=== PATIENT | female | born 1990 | race Caucasian/White ===

== ENCOUNTER 2020-01-15 09:18 | Inpatient (IN) | payer BC ==
[2020-01-15] MEDS ORDERED: ELECTROLYTE-148 SOLN 1,000 ML IV SCH (10:00)
[2020-01-15 10:21] VITALS: BMI 23.9
[2020-01-15 10:31] LABS: BASO % 0.4 % (0-2.0); EOS % 0.5 % (0-4.5); HEMATOCRIT 40.8 % (32.4-45.2); HEMOGLOBIN 13.4 GM/dL (10.7-15.3); LYMPH % 15.6 % (8-40); MCH 29.6 pg (25.7-33.7); MCHC 32.8 g/dl (32.0-36.0); MEAN CELL VOLUME 90.1 fl (80-96); MEAN PLT VOLUME 10.4 fl (7.5-11.1); MONO % 8.1 % (3.8-10.2); NEUT % 75.4 % (42.8-82.8); PLATELET COUNT 225 K/MM3 (134-434); RBC 4.52 M/mm3 (3.60-5.2); RDW 14.2 % (11.6-15.6); WHITE BLOOD COUNT 11.6 K/mm3 (4.0-10.0)
[2020-01-15 10:39] LABS: INR 0.88 (0.83-1.09); PROTHROMBIN TIME (PATIENT) 10.4 SEC (9.7-13.0)
[2020-01-15 10:42] LABS: ACTIVATED PTT 25.9 SECONDS (25.2-36.5)
[2020-01-15 10:47] LABS: BLOOD UREA NITROGEN 5.5 mg/dL (7-18); CALCIUM 9.3 mg/dL (8.5-10.1); CREATININE 0.6 mg/dL (0.55-1.3); POTASSIUM 3.8 mmol/L (3.5-5.1)
[2020-01-15] MEDS ORDERED: PROMETHAZINE HCL 25 MG/1 ML VIAL IVPB ONE (12:15)
[2020-01-15] MEDS ORDERED: BUTORPHANOL TARTRATE 1 MG/ML VIAL IVPB ONE (12:15)
[2020-01-15] MEDS ORDERED: BUTORPHANOL TARTRATE 1 MG/ML VIAL ONE ×2 (12:16)
[2020-01-15] MEDS ORDERED: PROMETHAZINE HCL 25 MG/1 ML VIAL ONE (12:16)
[2020-01-15] MEDS ORDERED: PCA PUMP NR ONE (13:16)
[2020-01-15] MEDS ORDERED: FENTANYL/BUPIVACAINE/NS/PF - PCEA - 50 ML DISP.SYRIN EP ONE ×2 (13:17→18:14)
[2020-01-15] MEDS ORDERED: NALOXONE HCL 0.4 MG/ML VIAL IVPUSH PRN (15:21)
[2020-01-15] MEDS ORDERED: FENTANYL/BUPIVACAINE/NS/PF - PCEA - 50 ML DISP.SYRIN EP SCH (15:30)
[2020-01-15] MEDS ORDERED: ACETAMINOPHEN 325 MG TABLET (FP) ONE (19:21)
[2020-01-15] MEDS ORDERED: OXYTOCIN 30 UNITS in 0.9% NS 30 UNIT/500 ML INFUS.BAG IVPB ONE (20:05)
[2020-01-15] MEDS ORDERED: ACETAMINOPHEN 325 MG TABLET (FP) PO PRN (20:09)
--- NOTE | 2020-01-15 20:13 | HP ---
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: Alzheimer's, CVA, Dementia, Migraine, Multiple Sclerosis, Peripheral Neuropathy, Parkinson's, Seizure, Syncope, TIA, Vertigo, Other Cardiovascular: No: AFIB, Aneurysm, Aortic Insufficiency, Aortic Stenosis, CAD, CHF, Deep Vein Thrombosis, HTN, Hyperlipdemia, OK, Mitral Insufficiency, Mitral Stenosis, Murmur, Pulmonary Hypertension, Other Pulmonary: No: Asthma, Bronchitis, Cancer, COPD, O2 Dependent, Pneumonia, Previously Intubated, Pulmonary Embolus, Pulmonary Fibrosis, Sleep Apnea, Other Gastrointestinal: No: Ascites, Cancer, Constipation, Crohn's Disease, Diverticulitis, Diverticulosis, Esophageal Varices, Gastritis, GERD, GI Bleed, Hemorrhoids, Hiatal Hernia, Inflamatory Bowel Disease, Irritable Bowel Disease, Pancreatitis, Peptic Ulcer Disease, Ulcerative Colitis, Other Hepatobiliary: No: Cirrhosis, Cholelithiasis, Cholecystitis, Choledocholithiasis, Hepatitis A, Hepatitis B, Hepatitis C, Other Renal/: No: Renal Failure, Renal Inusuff, BPH, Cancer, Hematuria, Hemodialysis, Neurogenic Bladder, Renal Calculi, UTI, Other Reproductive: No: Ectopic , Endometriosis, Fibroids, PID, Polycystic Ovary Syndrome, Postmenopausal, Other ...: 1 ...EDC by Andrey: 01/12/20 Heme/Onc: No: Anemia, B12 Deficiency, Bleeding Disorder, Cancer, Current Chemotherapy, Current Radiation Therapy, Hemochromatosis, Hypercoaguable State, Myeloproliferative Synd, Sickle Cell Disease, Sickle Cell Trait, Thrombocytopenia, Other Infectious Disease: No: AIDS, C-Diff, Herpes Zoster, HIV, MRSA, STD's, Tuberculosis, VREF, Other Psych: No: Addictions, Anxiety, Bipolar, Depression, Panic, Psychosis, Schi zophrenia, Other Musculoskeletal: No: Bursitis, Chronic low back pain, Hemiparesis, Hemiplegia, Osteoarthritis, Paraplegia, Other Rheumatology: No: Fibromyalgia, Gout, Lupus, Rheumatoid Arthritis, Sarcoidosis, Vasculitis, Other ENT: No: Allergic Rhinitis, Sinusitis, Other Endocrine: No: Raheem's Disease, Cindy's Disease, Diabetes Insipidus, Diabetes Mellitus, Hyperparathyroidism, Hyperthyroidism, Hypothyroidism, Osteopenia, SIADH, Other Dermatology: No: Basal Cell, Cellulitis, Eczema, Melanoma, Psoriasis, Squamous Cell, Other - Past Surgical History Past Surgical History: No: None, AAA Repair, AICD, Amputation, Appendectomy, Arthrosocopy, AV Fistula/Graft, Bariatric Surgery, Breast Biopsy, Bypass, CABG, Carotid Endarterectomy, Cataract Removal, Cholecystectomy, Colectomy, Colonoscopy, Colostomy, Craniotomy, , Cystectomy, Hernia Repair, Hysterectomy, Ileal Conduit, Ileosotomy, Joint Replacement, Kidney Transplant, Laminectomy, Liver Transplant, Mastectomy, Nephrectomy, Oopherectomy, Orchiectomy, Permanent Pacemaker, Prostatectomy, Splenectomy, Stent, Thoracotomy, TURP, Tonsillectomy, Tubal Ligation, Upper Endoscopy, Valve Replacement, Vasectomy, Vein Stripping/Ligation Hx Myomectomy: No Hx Transabdominal Cerclage: No - Advance Directives Advance Directives: Yes: Living Will - Smoking History Smoking history: Never smoked Have you smoked in the past 12 months: No - Alcohol/Substance Use Hx Alcohol Use: No History of Substance Use: reports: None - Social History Usual Living Arrangement: Yes: Alone Do you think of yourself as: Straight/Heterosexual ADL: Independent History of Recent Travel: No Home Medications - Allergies Allergies/Adverse Reactions: Allergies Allergy/AdvReac Type Severity Reaction Status Date / Time No Known Allergies Allergy Verified 01/15/20 10:25 - Home Medications Home Medications: Ambulatory Orders Albuterol Sulfate Inhaler - [Ventolin HFA Inhaler -] 1 - 2 inh PO Q4H #1 inhaler 11/02/19 Tablet 1 tablet PO DAILY 01/15/20 Review of Systems - Review of Systems Constitutional: reports: No Symptoms Eyes: reports: No Symptoms HENT: reports: No Symptoms Neck: reports: No Symptoms Cardiovascular: reports: No Symptoms Respiratory: reports: No Symptoms Gastrointestinal: reports: No Symptoms Genitourinary: reports: No Symptoms Breasts: reports: No Symptoms Reported Musculoskeletal: reports: No Symptoms Integumentary: reports: No Symptoms Neurological: reports: No Symptoms Endocrine: reports: No Symptoms Hematology/Lymphatic: reports: No Symptoms Psychiatric: reports: No Symptoms Physical Exam - Maternity Vital Signs: Vital Signs Temperature 99.8 F H 01/15/20 19:00 Pulse Rate 87 01/15/20 19:00 Respiratory Rate 18 01/15/20 19:00 Blood Pressure 124/73 01/15/20 19:00 O2 Sat by Pulse Oximetry (%) 100 01/15/20 19:00 Constitutional: Yes: Well Nourished, No Distress, Calm Eyes: Yes: WNL, Conjunctiva Clear, EOM Intact HENT: Yes: WNL, Atraumatic, Normocephalic Neck: Yes: WNL, Supple, Trachea Midline Cardiovascular: Yes: WNL, Regular Rate and Rhythm Lungs: Clear to auscultation Breast(s): Yes: WNL - Abdominal Exam/OB Fundal Height: 40 Number of Fetuses: Single Presentation: Vertex Contractions: Yes Regularity: Regular Intensity: Moderate Monitor Mode: External Heart Rate (range): 150 Heart Rate Location: [facility] Category: I Accelerations: Uniform Decelerations: None - Vaginal Exam/OB Vaginal Bleeding: No Speculum Exam: No Dilatation (cm): 2 Amniotic Membrane Status: Intact Presentation: Vertex/Position Station: -2 - Physical Exam Musculoskeletal: Yes: WNL Extremities: Yes: WNL Edema: Yes Edema: LUE: 1+, RUE: 1+, LLE: 1+, RLE: 1+ Integumentary: Yes: WNL Deep Tendon Reflex Grade: Normal +2 ...Motor Strength: WNL Psychiatric: Yes: WNL, Alert, Oriented - Labs Lab Results: CBC, BMP 01/15/20 10:00 01/15/20 10:00 Hemorrhage Risk Assessment - Risk Factors Medium Risk Factors: Yes: None High Risk Factors: Yes: None Risk Score: 1 Risk Level: Medium Risk Assessment/Plan for , cervidil then pitocin
--- NOTE | 2020-01-15 20:14 | PN ---
Progress Note (short form) - Note Progress Note: 5pm 6 cm, comfortable w epidural, uc q 3 min, cervidil out
[2020-01-15] MEDS ORDERED: DEXTROSE 5%-LACTATED RINGERS 1,000 ML IV SCH (20:15)
[2020-01-15] MEDS ORDERED: OXYTOCIN 30 UNITS in 0.9% NS 30 UNIT/500 ML INFUS.BAG IVPB SCH (20:15)
--- NOTE | 2020-01-15 20:15 | PN ---
Progress Note (short form) - Note Progress Note: 730 pm, nst reactive, uc q 3 min, comfort w epidural, continue labor, add pitocin
[2020-01-15] MEDS ORDERED: OXYTOCIN 20 UNITS in 0.9% NS 20 UNIT/1,000 ML INFUS.BAG IV ONE (20:59)
[2020-01-15] MEDS ORDERED: BENZOCAINE 20% 57 GM BOTTLE TP PRN (22:53)
[2020-01-15] MEDS ORDERED: METHYLERGONOVINE MALEATE 0.2 MG/1 ML AMP IM PRN (22:53)
[2020-01-15] MEDS ORDERED: BENZOCAINE 28 GM HEMORRHOIDAL OINTMENT TP PRN (22:53)
[2020-01-15] MEDS ORDERED: WITCH HAZEL 50% (TUCKS) 40 PAD/JAR PAD TP PRN (22:53)
[2020-01-15] MEDS ORDERED: BISACODYL 10 MG SUPP.RECT RC PRN (22:53)
[2020-01-15] MEDS ORDERED: OXYTOCIN 20 UNITS in 0.9% NS 20 UNIT/1,000 ML INFUS.BAG IV SCH (23:00)
[2020-01-15] MEDS ORDERED: oxyCODONE HCL 5 MG TABLET ONE (23:02)
--- NOTE | 2020-01-15 23:05 | PN ---
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
[2020-01-15] MEDS: oxyCODONE HCL 5 MG TABLET PO PRN (23:07)
[2020-01-15 23:17] LABS: CORD HCO3 19.5 mmHg (20-29); CORD PCO2 40.2 mmHg (30-78); CORD pH 7.304 (7.14-7.44)
[2020-01-15 23:22] LABS: CORD HCO3 17.4 mmHg (20-29); CORD PCO2 60.2 mmHg (30-78)
[2020-01-16] MEDS ORDERED: OXYTOCIN 20 UNITS in 0.9% NS 20 UNIT/1,000 ML INFUS.BAG IV ONE (00:40)
[2020-01-16] MEDS ORDERED: PCA PUMP NR ONE (01:00)
[2020-01-16] MEDS: oxyCODONE HCL 5 MG TABLET PO PRN ×2 (04:50→20:31)
[2020-01-16] MEDS: ACETAMINOPHEN 325 MG TABLET (FP) PO PRN ×2 (04:55→18:05)
[2020-01-16] MEDS: IBUPROFEN 600 MG TABLET (FP) PO PRN ×2 (04:56→18:04)
[2020-01-16 08:09] LABS: BASO % 0.1 % (0-2.0); HEMATOCRIT 29.1 % (32.4-45.2); HEMOGLOBIN 9.5 GM/dL (10.7-15.3); LYMPH % 5.6 % (8-40); MCH 29.3 pg (25.7-33.7); MCHC 32.8 g/dl (32.0-36.0); MEAN CELL VOLUME 89.2 fl (80-96); MONO % 7.4 % (3.8-10.2); NEUT % 86.9 % (42.8-82.8); PLATELET COUNT 191 K/MM3 (134-434); RBC 3.26 M/mm3 (3.60-5.2); RDW 14.1 % (11.6-15.6); WHITE BLOOD COUNT 25.9 K/mm3 (4.0-10.0)
[2020-01-16] MEDS: PRENATAL VITAMINS W/ FOLIC ACID TABLET (FP) PO SCH (09:22)
[2020-01-16] MEDS ORDERED: PNEUMOC 13-VAL CONJ-DIP CRM/PF 0.5 ML DISP.SYRIN IM ONE (10:00)
[2020-01-16] MEDS ORDERED: FLU VACCINE QUAD 60 MCG/0.5 ML (MDV 19-20) IM ONE (10:00)
[2020-01-16 10:20] LABS: ANISOCYTOSIS 1+; MACROCYTOSIS 0; PLATELET ESTIMATE NORMAL
[2020-01-16] MEDS ORDERED: FLU VACC QS2019-20(6MOS UP)/PF 60 MCG/0.5 ML SYRINGE IM ONE (11:00)
[2020-01-16] MEDS ORDERED: DIPHTH,PERTUSS(ACELL),TET 0.5 ML DISP.SYRIN IM ONE (11:00)
[2020-01-16] MEDS ORDERED: PNEUMOCOCCAL 23 VACCINE 0.5 ML VIAL IM ONE (11:00)
--- NOTE | 2020-01-16 16:46 | PN ---
Post Progress Note Post Day: 1 Type of Delivery: Vital Signs: Vital Signs Temperature 98.6 F 01/16/20 14:00 Pulse Rate 94 H 01/16/20 14:00 Respiratory Rate 20 01/16/20 14:00 Blood Pressure 107/65 01/16/20 14:00 O2 Sat by Pulse Oximetry (%) 100 01/15/20 23:15 Breast Exam: Yes: Soft Uterus: Yes: Fundus Firm, Fundus below umbilicus, Non-tender Abdomen/GI: Yes: Abdomen soft, Passing flatus, Tolerating PO Lochia: Yes: Serosa Lochia, amount: Small Extremities: Yes: Calves non-tender Perineum: Yes: Episiotomy Activity: Ambulating (dc pt home tomorrow) - Labs Labs: CBC WBC 25.9 K/mm3 (4.0-10.0) H 01/16/20 07:11 RBC 3.26 M/mm3 (3.60-5.2) L 01/16/20 07:11 Hgb 9.5 GM/dL (10.7-15.3) L 01/16/20 07:11 Hct 29.1 % (32.4-45.2) L D 01/16/20 07:11 MCV 89.2 fl (80-96) 01/16/20 07:11 MCH 29.3 pg (25.7-33.7) 01/16/20 07:11 MCHC 32.8 g/dl (32.0-36.0) 01/16/20 07:11 RDW 14.1 % (11.6-15.6) 01/16/20 07:11 Plt Count 191 K/MM3 (134-434) 01/16/20 07:11 MPV 10.0 fl (7.5-11.1) 01/16/20 07:11 Absolute Neuts (auto) 22.5 K/mm3 (1.5-8.0) H 01/16/20 07:11 Neutrophils % 86.9 % (42.8-82.8) H 01/16/20 07:11 Neutrophils % (Manual) 84.1 % (42.8-82.8) H 01/16/20 07:11 Band Neutrophils % 8.9 % 01/16/20 07:11 Lymphocytes % 5.6 % (8-40) L D 01/16/20 07:11 Lymphocytes % (Manual) 4.0 % (8-40) L 01/16/20 07:11 Monocytes % 7.4 % (3.8-10.2) 01/16/20 07:11 Monocytes % (Manual) 3 % (3.8-10.2) L 01/16/20 07:11 Eosinophils % 0.0 % (0-4.5) D 01/16/20 07:11 Eosinophils % (Manual) 0.0 % (0-4.5) 01/16/20 07:11 Basophils % 0.1 % (0-2.0) 01/16/20 07:11 Basophils % (Manual) 0.0 % (0-2.0) 01/16/20 07:11 Myelocytes % (Man) 0 % (0-2) 01/16/20 07:11 Promyelocytes % (Man) 0 % (0-2) 01/16/20 07:11 Blast Cells % (Manual) 0 % (0-0) 01/16/20 07:11 Nucleated RBC % 0 % (0-0) 01/16/20 07:11 Metamyelocytes 0 % (0-2) 01/16/20 07:11 Hypochromia 0 01/16/20 07:11 Platelet Estimate Normal 01/16/20 07:11 Platelet Comment Present 01/16/20 07:11 Polychromasia 1+ 01/16/20 07:11 Poikilocytosis 1+ 01/16/20 07:11 Anisocytosis 1+ 01/16/20 07:11 Microcytosis 1+ 01/16/20 07:11 Macrocytosis 0 01/16/20 07:11 Spherocytes 1+ 01/16/20 07:11
--- NOTE | 2020-01-16 16:49 | DS ---
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: Vital Signs Temperature 98.6 F 01/16/20 14:00 Pulse Rate 94 H 01/16/20 14:00 Respiratory Rate 20 01/16/20 14:00 Blood Pressure 107/65 01/16/20 14:00 O2 Sat by Pulse Oximetry (%) 100 01/15/20 23:15 Constitutional: Yes: Well Nourished, No Distress, Calm Eyes: Yes: WNL, Conjunctiva Clear, EOM Intact HENT: Yes: WNL, Atraumatic, Normocephalic Neck: Yes: WNL, Supple, Trachea Midline Cardiovascular: Yes: WNL, Regular Rate and Rhythm Respiratory: Yes: WNL, Regular, CTA Bilaterally Gastrointestinal: Yes: WNL, Normal Bowel Sounds, Soft ...Rectal Exam: Yes: WNL Renal/: Yes: WNL Pelvis: Yes: WNL External Genitalia: Yes: Normal Internal Exam Deferred: Yes Vaginal Exam: Yes: Normal Cervix: Yes: Normal Uterus: Yes: Normal Adnexa: Normal: Bilateral ....Post : Yes: Uterus firm, Uterus non-tender Breast(s): Yes: WNL Musculoskeletal: Yes: WNL Extremities: Yes: WNL Edema: Yes Integumentary: Yes: WNL Neurological: Yes: WNL, Alert, Oriented ...Motor Strength: WNL Psychiatric: Yes: WNL, Alert, Oriented Labs: CBC, BMP 01/16/20 07:11 01/15/20 10:00 Delivery - Delivery Vaginal Delivery: No Problems Type of Anesthesia: Local, Epidural Episiotomy/Laceration: Right Mediolateral EBL (cc): 200 Delivery, Single - Stages of Labor Date 1st Stage Initiatied: 01/15/20 Time 1st Stage Initiated: 16:50 Date 2nd Stage Initiated: 01/15/20 Time 2nd Stage Initiated: 21:00 Date of Delivery: 01/15/20 Time of Delivery: 22:21 Time Placenta Delivered: 22:24 Placenta: Yes: Spontaneous - 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 Gender: Male Weight: 3.856 kg Position: Left, OA Total Hours ROM (Hrs/Mins): 2h 21m - 1 Minute Total Score: 7 5 Minutes Total Score: 9 - Feeding Plan Initial Plan: Elected not to breastfeed exclusively throughout hospitalization Discharge Summary Problems reviewed: Yes Reason For Visit: INDUCTION OF LABOR Procedures: Principal: Other Procedures: none Hospital Course: uneventful Health Concerns: none Plan of Treatment: oob as much as poosible Condition: Good - Instructions Diet, Activity, Other Instructions: Physical activity Resume your normal everyday activity as tolerated no heavy lifting or exercise until seen by your surgeon. You may walk unlimited jon of and climb stairs. You may resume driving the car when you feel safe and comfortable behind the wheel. No sexual activity as instructed. Wound care If you have a bandage, leave it on, and keep dry for 48-72 hours. After that time discard the outer bandage. If they are tapes on the skin under the out of bandage leave them in place. They will peel off in the next 7 to 10 days. Do Not Peel them off. You may shower the day after surgery. If there are tapes present on the skin, you may shower over them. Diet There are no dietary restrictions. Eat healthy, high-fiber foods. Drink 6 to 8 glasses of liquid each day. This will assist in keeping your bowels are regular. Pain management You may take Tylenol or acetaminophen or Ibuprofen (for example, Motrin, Advil etc.) from my pain prescription medication is ordered should be taken as prescri bed for moderate to severe pain. Call MD for any of the following: call dr paris for weeks appointment Severe pain not relieved by medication Fever of 101 or higher Excessive bleeding or drainage on dressing Inability to urinate Disposition: HOME - Home Medications Comprehensive Discharge Medication List: Ambulatory Orders Albuterol Sulfate Inhaler - [Ventolin HFA Inhaler -] 1 - 2 inh PO Q4H #1 inhaler 11/02/19 Tablet 1 tablet PO DAILY 01/15/20 Prescription Drug Monitoring Program (I-STOP) results: I-STOP reviewed and no issues identified
[2020-01-16] MEDS ORDERED: SENNOSIDES/DOCUSATE COMBO (SENNA PLUS) TABLET (UD) PO PRN (22:00)
[2020-01-17] MEDS: ACETAMINOPHEN 325 MG TABLET (FP) PO PRN (06:00)
[2020-01-17] MEDS: IBUPROFEN 600 MG TABLET (FP) PO PRN (06:00)
[2020-01-17] MEDS: oxyCODONE HCL 5 MG TABLET PO PRN (06:01)
[2020-01-17] MEDS: PRENATAL VITAMINS W/ FOLIC ACID TABLET (FP) PO SCH (09:27)
[2020-01-17 10:45] LABS: BASO % 0.2 % (0-2.0); EOS % 0.4 % (0-4.5); HEMATOCRIT 26.7 % (32.4-45.2); HEMOGLOBIN 8.7 GM/dL (10.7-15.3); LYMPH % 10.1 % (8-40); MCH 29.7 pg (25.7-33.7); MCHC 32.7 g/dl (32.0-36.0); MEAN PLT VOLUME 9.2 fl (7.5-11.1); MONO % 5.9 % (3.8-10.2); NEUT % 83.4 % (42.8-82.8); PLATELET COUNT 207 K/MM3 (134-434); RBC 2.94 M/mm3 (3.60-5.2); RDW 14.5 % (11.6-15.6); WHITE BLOOD COUNT 15.5 K/mm3 (4.0-10.0)
--- NOTE | 2020-01-17 15:03 | PN ---
Progress Note (short form) - Note Progress Note: pt was found tacy of 140 and sob slightly, pt is symptomatic from anemia, will transfuse x 2 uints, no active vag bleeding
[2020-01-17 16:44] VITALS: BP 120/72; PULSE 98; TEMP 98.7
--- NOTE | 2020-01-17 17:49 | EKG ---
Test Reason : Blood Pressure : / mmHG Vent. Rate : 095 BPM Atrial Rate : 095 BPM P-R Int : 136 ms QRS Dur : 086 ms QT Int : 354 ms P-R-T Axes : 071 072 036 degrees QTc Int : 444 ms NORMAL SINUS RHYTHM WITH SINUS ARRHYTHMIA NORMAL ECG NO PREVIOUS ECGS AVAILABLE Confirmed by MD Palomo, Tho ([id number]) on 01/17/2020 5:48:50 PM Referred By: Jacqueline CHEW Confirmed By:Tho Culver MD
== END 2020-01-17 18:57 | disposition home or self-care (01) | DRG 807 ==
LOC: JLDR 09:18 → J3N 01-16 01:05
PROVIDERS: ADMIT Obstetrics & Gynecology; ATTEND Obstetrics & Gynecology
PROC: 10E0XZZ Delivery of Products of Conception, External Approach (ICD-10-PCS; principal; 2020-01-15)
PROC: 3E033VJ Introduction of Other Hormone into Peripheral Vein, Percutaneous Approach (ICD-10-PCS; 2020-01-15)
PROC: 3E0P7VZ Introduction of Hormone into Female Reproductive, Via Natural or Artificial Opening (ICD-10-PCS; 2020-01-15)
PROC: 0W8NXZZ Division of Female Perineum, External Approach (ICD-10-PCS; 2020-01-15)
PROC: 30233N1 Transfusion of Nonautologous Red Blood Cells into Peripheral Vein, Percutaneous Approach (ICD-10-PCS; 2020-01-17)
DX: O48.0 Post-term pregnancy (principal); Z37.0 Single live birth; O77.0 Labor and delivery complicated by meconium in amniotic fluid; Z3A.40 40 weeks gestation of pregnancy; O90.81 Anemia of the puerperium; D64.89 Other specified anemias; O98.519 Other viral diseases complicating pregnancy, unspecified trimester; B33.8 Other specified viral diseases; Z86.19 Personal history of other infectious and parasitic diseases
CPT/HCPCS: 36415; 36430; 36511; 36600; 59409; 80048; 82803; 85025; 85610; 85730; 86780; 86850; 86900; 86901; 86922; 87389; 90686; 90715; 90732; 93005; 93010; G0008; G0009; P9038; P9058; U0003

== ENCOUNTER 2020-02-05 21:06 | Inpatient (IN) | payer BC ==
--- NOTE | 2020-02-05 21:54 | PDOC ---
History of Present Illness - General Chief Complaint: Chest Pain Stated Complaint: CHEST PAIN Time Seen by Provider: 02/05/20 21:18 - History of Present Illness Initial Comments: 02/05/20 21:49 29-year-old female past medical history asthma COVID positive for months ago gave 3 weeks ago here via vaginal delivery with a significant amount of blood loss requiring 2 units packed red blood cells. Patient's hemoglobin on admission for delivery was 13 patient states her hemoglobin went down to 7 she was transfused 2 units and was discharged with hemoglobin 8.7. Patient is complaining of syncopal episode 3 days ago without head trauma as well as chest pain dizziness shortness of breath weakness tachycardia and palpitations. Patient states she still having vaginal bleeding but has not noticed any passing of clots or retained products of conception. Pt otherwise denies: fevers, chills, headaches, neck pain, back pain, abdominal pain, nausea, vomiting, diarrhea, constipation. Past History - Medical History Allergies/Adverse Reactions: Allergies Allergy/AdvReac Type Severity Reaction Status Date / Time No Known Allergies Allergy Verified 01/15/20 10:25 Home Medications: Ambulatory Orders Albuterol Sulfate Inhaler - [Ventolin HFA Inhaler -] 1 - 2 inh PO Q4H #1 inhaler 11/02/19 Tablet 1 tablet PO DAILY 01/15/20 Ibuprofen [Motrin -] 600 mg PO QID PRN #28 tablet 01/17/20 Asthma: Yes Cancer: No Cardiac Disorders: No COPD: No Diabetes: No HTN: No Seizures: No Thyroid Disease: No - Psycho-Social/Smoking History Smoking History: Never smoked Have you smoked in the past 12 months: No - Substance Abuse Hx (Audit-C & DAST Scrn) How often the patient has a drink containing alcohol: Never Score: In Men: 4 or > Positive; In Women: 3 or > Positive: 0 Screen Result (Pos requires Nsg. Audit-10AR): Negative In the last yr the pt used illegal drug/Rx for NonMed reason: No Score: Yes response is considered Positive: 0 Screen Result (Positive result requires Nsg. DAST-10): Negative *Physical Exam - Vital Signs Last Vital Signs Temp Pulse Resp BP Pulse Ox 98 F 85 19 145/97 97 02/05/20 21:08 02/05/20 21:08 02/05/20 21:08 02/05/20 21:08 02/05/20 21:08 - Physical Exam 02/05/20 21:51 Gen: AAOx 3, no acute distress, comfortable, no signs of respiratory distress HENT: atraumatic, normocephalic with no laceration or contusion. Nasal mucosa without erythema. Oropharynx without erythema or exudates. Mucous membranes moist. EYES: PERRL, EOM intact, conjunctiva pink NECK: supple; trachea midline; no JVD, no lymphadenopathy, or thyromegaly CV: RRR no murmurs, gallops, or rubs. CHEST: CTA b/l no wheezing, rales or rhonchi ABD: +BS/ND. no TTP; soft, no rebound, no guarding PELVIC: No external lesions, vaginal vault: - white discharge, dark red blood in vault no clots, - midline tenderness elicited with manual exam, no CMT or adnexal tenderness; os unable to be visualized EXTREMITY: no cyanosis or erythema. 2+ dorsalis pedis, posterior tibial, and radial pulse. No pedal edema; no calf swelling or tenderness SKIN: no rash, warm and dry, no diaphoresis HEME: no purpura or ecchymosis NEURO: normal speech, CN II-XII intact, sensation intact, normal gait, no cerebellar deficits MS: 5/5 strength in all extremities, FROM intact in all extremities. ED Treatment Course - LABORATORY CBC & Chemistry Diagram: 02/05/20 21:50 02/05/20 21:50 Medical Decision Making - Medical Decision Making 02/05/20 21:52 29-year-old female history of asthma COVID positive for months ago 3- week presenting with chest pain shortness of breath dizziness weakness palpitations. Vital signs stable Concern for HELP syndrome versus symptomatic anemia versus PE versus cardiomyopathy Will obtain CBC CMP troponin type and screen x2 mag BNP EKG If patient's hemoglobin shows anemia other differentials significantly less likely Will use lab work to determine likelihood of other differentials If no anemia patient to be worked up for pulmonary embolism Will reassess based on result Labs: Wbc 6.5 H&H: 15.1/45.2 Coags WNL Alk phos elevated Trop and BNP negative EKG show new ST depressions in V2 and V3. Anemia, cardiomyopathy (based soley on BNP) and HELP syndrome ruled out Will obtain CTA to assess for PE. Pt signed out for further management pending CTA results and admission for syncope work up. 02/05/20 23:52 Discharge - Discharge Information Problems reviewed: Yes Clinical Impression/Diagnosis: Syncope Qualifiers: Syncope type: unspecified Qualified Code(s): R55 - Syncope and collapse Condition: Stable - Follow up/Referral - Patient Discharge Instructions - Post Discharge Activity
[2020-02-05 22:21] LABS: INR 0.93 (0.83-1.09)
[2020-02-05 22:47] LABS: BASO % 0.7 % (0-2.0); EOS % 8.8 % (0-4.5); HEMATOCRIT 45.2 % (32.4-45.2); HEMOGLOBIN 15.1 GM/dL (10.7-15.3); LYMPH % 43.1 % (8-40); MCH 30.3 pg (25.7-33.7); MCHC 33.3 g/dl (32.0-36.0); MEAN PLT VOLUME 7.8 fl (7.5-11.1); MONO % 8.6 % (3.8-10.2); NEUT % 38.8 % (42.8-82.8); PLATELET COUNT 425 K/MM3 (134-434); RBC 4.97 M/mm3 (3.60-5.2); RDW 14.9 % (11.6-15.6); WHITE BLOOD COUNT 6.5 K/mm3 (4.0-10.0)
[2020-02-05 22:59] LABS: ALBUMIN 3.9 g/dl (3.4-5.0); ALK PHOS 136 U/L (45-117); ANION GAP 8 MMOL/L (8-16); BILIRUBIN,TOTAL 0.8 mg/dL (0.2-1); CALCIUM 9.8 mg/dL (8.5-10.1); CHLORIDE 106 mmol/L (98-107); CO2 29 mmol/L (21-32); CREATININE 0.8 mg/dL (0.55-1.3); GLUCOSE,RANDOM 80 mg/dL (74-106); MAGNESIUM 2.6 mg/dL (1.8-2.4); POTASSIUM 4.5 mmol/L (3.5-5.1); SGOT/AST 20 U/L (15-37); SGPT/ALT 25 U/L (13-61); SODIUM 143 mmol/L (136-145); TOT PROT 7.8 g/dl (6.4-8.2)
--- NOTE | 2020-02-06 00:18 | PDOC ---
*Physical Exam - Vital Signs Last Vital Signs Temp Pulse Resp BP Pulse Ox 98 F 85 19 145/97 97 02/05/20 21:08 02/05/20 21:08 02/05/20 21:08 02/05/20 21:08 02/05/20 21:08 - Physical Exam 02/06/20 00:18 gen: aaox3, nad heart: +s1s2 reg lungs: cta b/l abd: soft, nt/nd palpable uterus below the umbilicus ext: no c/c/e ED Treatment Course - LABORATORY CBC & Chemistry Diagram: 02/05/20 21:50 02/05/20 21:50 - ADDITIONAL ORDERS Additional order review: Laboratory Results 02/05/20 02/05/20 02/05/20 21:50 21:50 21:50 PT with INR 11.00 INR 0.93 PTT (Actin FS) 34.0 Sodium 143 Potassium 4.5 Chloride 106 Carbon Dioxide 29 Anion Gap 8 BUN 11.0 Creatinine 0.8 Est GFR (CKD-EPI)AfAm 117.10 Est GFR (CKD-EPI)NonAf 101.04 Random Glucose 80 Calcium 9.8 Magnesium 2.6 H Total Bilirubin 0.8 AST 20 ALT 25 Alkaline Phosphatase 136 H Creatine Kinase 64 Troponin I < 0.02 B-Natriuretic Peptide 23.0 Total Protein 7.8 Albumin 3.9 Blood Type O POSITIVE Antibody Screen Negative 02/05/20 21:50 RBC 4.97 MCV 91.0 MCHC 33.3 RDW 14.9 MPV 7.8 D Neutrophils % 38.8 L D Lymphocytes % 43.1 H D Monocytes % 8.6 Eosinophils % 8.8 H D Basophils % 0.7 D Medical Decision Making - Medical Decision Making 02/06/20 00:04 a/p: 29yo female who delivered 3 weeks ago vaginal delivery with a syncopal episode at home and sob -pt states cp and sob -still feels lightheaded -labs reviewed, trop neg -pt in CT pending CTA chest -hgb 15 -pending cta and obs for syncope Discharge - Discharge Information Problems reviewed: Yes Clinical Impression/Diagnosis: Syncope Qualifiers: Syncope type: unspecified Qualified Code(s): R55 - Syncope and collapse Condition: Guarded - Admission Yes - Follow up/Referral - Patient Discharge Instructions - Post Discharge Activity
[2020-02-06] MEDS ORDERED: ALBUTEROL SO4 0.083% IH SOL 2.5 MG/3 ML VIAL.NEB. NEB ONE ×2 (03:13→06:34)
--- NOTE | 2020-02-06 03:32 | HP ---
<Gomez Alvarado - Last Filed: 02/06/20 05:05> CHIEF COMPLAINT: Syncope PCP: HISTORY OF PRESENT ILLNESS: 29 y.o. F PMHx of asthma and covid presenting due to syncopal event and chest pain. 3 weeks ago she had a spontaneous vaginal delivery () and needed to be transfused 2 units of RBC's which brought her Hgb from 7 to 7.8 on discharge. Patient stated 3 days ago she was getting out of the shower and became lightheaded. She sat down on the toilet and does not remember what happened. She said her had brought her to the bed where she regained awareness but no indication on how long she was out for or if there was a post state of confusion. During this time she has also experienced R sided chest pain ( 3rd intercostal space and 6-7th intercostal spaces) that occasionally moves to the left side, described as a pressure on her chest, not reproducible, graded at a 5/10 intensity. Patient stated she has had intermittent headaches, palpitations and SOB upon exertion that is not relived with her albuterol. 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 ER course was notable for: (1) EKG (2) Beta-HcG (3) Cardiac profile Recent Travel: No PAST MEDICAL HISTORY: Asthma, Covid PAST SURGICAL HISTORY: Vaginal delivery Social History: Smoking: No Alcohol:No Drugs: No Allergies No Known Allergies Allergy (Verified 01/15/20 10:25) HOME MEDICATIONS: Home Medications Medication Instructions Recorded Albuterol Sulfate Inhaler - 1 - 2 inh PO Q4H #1 inhaler 11/02/19 [Ventolin HFA Inhaler -] Tablet 1 tablet PO DAILY 01/15/20 Ibuprofen [Motrin -] 600 mg PO QID PRN #28 tablet 01/17/20 REVIEW OF SYSTEMS CONSTITUTIONAL: Absent: fever, chills, diaphoresis, generalized weakness, malaise, loss of appetite, weight change HEENT: Absent: rhinorrhea, nasal congestion, throat pain, throat swelling, difficulty swallowing, mouth swelling, ear pain, eye pain, visual changes CARDIOVASCULAR: Chest pain, syncope, palpitations, lightheadedness Absent: Irregular heart rate, peripheral edema RESPIRATORY: Dyspnea with exertion Absent: cough, shortness of breath, orthopnea, wheezing, stridor, hemoptysis GASTROINTESTINAL: Absent: abdominal pain, abdominal distension, nausea, vomiting, diarrhea, constipation, melena, hematochezia GENITOURINARY: Absent: dysuria, frequency, urgency, hesitancy, hematuria, flank pain, genital pain MUSCULOSKELETAL: Absent: myalgia, arthralgia, joint swelling, back pain, neck pain SKIN: Absent: rash, itching, pallor HEMATOLOGIC/IMMUNOLOGIC: Absent: easy bleeding, easy bruising, lymphadenopathy, frequent infections ENDOCRINE: Absent: unexplained weight gain, unexplained weight loss, heat intolerance, cold intolerance NEUROLOGIC: Absent: headache, focal weakness or paresthesias, dizziness, unsteady gait, seizure, mental status changes, bladder or bowel incontinence PSYCHIATRIC: Absent: anxiety, depression, suicidal or homicidal ideation, hallucinations. PHYSICAL EXAMINATION Vital Signs - 24 hr 02/05/20 02/06/20 02/06/20 21:08 01:12 02:16 Temperature 98 F 98.7 F 98.3 F Pulse Rate 85 Pulse Rate [ 74 80 Right] Respiratory 19 17 18 Rate Blood Pressure 145/97 Blood Pressure 111/79 [Arm] Blood Pressure 124/82 [Right Arm] O2 Sat by Pulse 97 100 100 Oximetry (%) GENERAL: Awake, alert, and fully oriented, in no acute distress. HEAD: Normal with no signs of trauma. EYES: Pupils equal, round and reactive to light, extraocular movements intact, sclera anicteric, conjunctiva clear. EARS, NOSE, THROAT: Ears normal, nares patent, oropharynx clear without exudates. NECK: No JVD, or masses. LUNGS: Breath sounds equal, clear to auscultation bilaterally. No wheezes, and no crackles. No accessory muscle use. HEART: Regular rate and rhythm, normal S1 and S2 without murmur, rub or gallop. ABDOMEN: Soft, nontender, not distended, normoactive bowel sounds, no guarding, no rebound, no masses. MUSCULOSKELETAL: Normal range of motion at all joints. No CVA tenderness. UPPER EXTREMITIES: 2+ pulses, warm, well-perfused. No peripheral edema. LOWER EXTREMITIES: 2+ pulses, warm, well-perfused. No calf tenderness. No peripheral edema. NEUROLOGICAL: Cranial nerves II-XII intact. Normal speech. PSYCHIATRIC: Cooperative. Good eye contact. Appropriate mood and affect. SKIN: Warm, dry, normal turgor, no rashes or lesions noted. Laboratory Results - last 24 hr 02/05/20 02/05/20 02/05/20 21:50 21:50 21:50 WBC 6.5 RBC 4.97 Hgb 15.1 Hct 45.2 D MCV 91.0 MCH 30.3 MCHC 33.3 RDW 14.9 Plt Count 425 D MPV 7.8 D Absolute Neuts (auto) 2.5 Neutrophils % 38.8 L D Lymphocytes % 43.1 H D Monocytes % 8.6 Eosinophils % 8.8 H D Basophils % 0.7 D Nucleated RBC % 0 PT with INR 11.00 INR 0.93 PTT (Actin FS) 34.0 Sodium Potassium Chloride Carbon Dioxide Anion Gap BUN Creatinine Est GFR (CKD-EPI)AfAm Est GFR (CKD-EPI)NonAf Random Glucose Calcium Magnesium Total Bilirubin AST ALT Alkaline Phosphatase Creatine Kinase Troponin I B-Natriuretic Peptide Total Protein Albumin Blood Type O POSITIVE Antibody Screen Negative 02/05/20 21:50 WBC RBC Hgb Hct MCV MCH MCHC RDW Plt Count MPV Absolute Neuts (auto) Neutrophils % Lymphocytes % Monocytes % Eosinophils % Basophils % Nucleated RBC % PT with INR INR PTT (Actin FS) Sodium 143 Potassium 4.5 Chloride 106 Carbon Dioxide 29 Anion Gap 8 BUN 11.0 Creatinine 0.8 Est GFR (CKD-EPI)AfAm 117.10 Est GFR (CKD-EPI)NonAf 101.04 Random Glucose 80 Calcium 9.8 Magnesium 2.6 H Total Bilirubin 0.8 AST 20 ALT 25 Alkaline Phosphatase 136 H Creatine Kinase 64 Troponin I < 0.02 B-Natriuretic Peptide 23.0 Total Protein 7.8 Albumin 3.9 Blood Type Antibody Screen ASSESSMENT/PLAN: 29 y.o. F PMHx of asthma and covid presenting due to syncopal event and chest pain. # Syncope - Patient admits to having a syncopal episode 3 days ago - EKG showed T wave inversion in v2 when compared with previous EKG - Repeat EKG in the morning - Orthostatics ordered - Echo ordered will f/u - UA ordered - Admission to telemetry - Head CT ordered # Chest Pain # Covid - Possibly secondary to covid pneumonitis vs ACS - ACS lower on DDx due to young healthy female but cannot r/o due to covid results pending - Initial trops negative, will continue to trend - TSH ordered - Patient was covid positive in the past - Covid PCR Ordered - PCR ordered due to geographic location of pandemic - Placed in isolation precautions # Eosinophilia - Eosinophils 8.8 - Repeat CBC in the morning # Asthma - Ventolin # FEN - Normal diet - Encourage oral hydration # DVT Prophylaxis - Patient encouraged - Hold medical AC until head CT results show no evidence of intracranial bleed # Dispo - Patient has been admitted to telemetry for cardiac monitoring - Troponins, Echo, EKG ordered will f/u ATTENDING PHYSICIAN STATEMENT I saw and evaluated the patient. I reviewed the resident's note and discussed the case with the resident. I agree with the resident's findings and plan as documented. SUBJECTIVE: OBJECTIVE: ASSESSMENT AND PLAN: <Lindy Godinez - Last Filed: 02/06/20 06:38> CHIEF COMPLAINT: PCP: HISTORY OF PRESENT ILLNESS: ER course was notable for: (1) (2) (3) Recent Travel: PAST MEDICAL HISTORY: PAST SURGICAL HISTORY: Social History: Smoking: Alcohol: Drugs: Allergies No Known Allergies Allergy (Verified 01/15/20 10:25) HOME MEDICATIONS: Home Medications Medication Instructions Recorded Albuterol Sulfate Inhaler - 1 - 2 inh PO Q4H #1 inhaler 11/02/19 [Ventolin HFA Inhaler -] Tablet 1 tablet PO DAILY 01/15/20 Ibuprofen [Motrin -] 600 mg PO QID PRN #28 tablet 01/17/20 REVIEW OF SYSTEMS CONSTITUTIONAL: Absent: fever, chills, diaphoresis, generalized weakness, malaise, loss of appetite, weight change HEENT: Absent: rhinorrhea, nasal congestion, throat pain, throat swelling, difficulty swallowing, mouth swelling, ear pain, eye pain, visual changes CARDIOVASCULAR: Absent: chest pain, syncope, palpitations, irregular heart rate, lightheadedness, peripheral edema RESPIRATORY: Absent: cough, shortness of breath, dyspnea with exertion, orthopnea, wheezing, stridor, hemoptysis GASTROINTESTINAL: Absent: abdominal pain, abdominal distension, nausea, vomiting, diarrhea, constipation, melena, hematochezia GENITOURINARY: Absent: dysuria, frequency, urgency, hesitancy, hematuria, flank pain, genital pain MUSCULOSKELETAL: Absent: myalgia, arthralgia, joint swelling, back pain, neck pain SKIN: Absent: rash, itching, pallor HEMATOLOGIC/IMMUNOLOGIC: Absent: easy bleeding, easy bruising, lymphadenopathy, frequent infections ENDOCRINE: Absent: unexplained weight gain, unexplained weight loss, heat intolerance, cold intolerance NEUROLOGIC: Absent: headache, focal weakness or paresthesias, dizziness, unsteady gait, seizure, mental status changes, bladder or bowel incontinence PSYCHIATRIC: Absent: anxiety, depression, suicidal or homicidal ideation, hallucinations. PHYSICAL EXAMINATION Vital Signs - 24 hr 02/05/20 02/06/20 02/06/20 21:08 01:12 02:16 Temperature 98 F 98.7 F 98.3 F Pulse Rate 85 Pulse Rate [ 74 80 Right] Respiratory 19 17 18 Rate Blood Pressure 145/97 Blood Pressure 111/79 [Arm] Blood Pressure 124/82 [Right Arm] O2 Sat by Pulse 97 100 100 Oximetry (%) GENERAL: Awake, alert, and fully oriented, in no acute distress. HEAD: Normal with no signs of trauma. EYES: Pupils equal, round and reactive to light, extraocular movements intact, sclera anicteric, conjunctiva clear. No lid lag. EARS, NOSE, THROAT: Ears normal, nares patent, oropharynx clear without exudates. Moist mucous membranes. NECK: Normal range of motion, supple without lymphadenopathy, JVD, or masses. LUNGS: Breath sounds equal, clear to auscultation bilaterally. No wheezes, and no crackles. No accessory muscle use. HEART: Regular rate and rhythm, normal S1 and S2 without murmur, rub or gallop. ABDOMEN: Soft, nontender, not distended, normoactive bowel sounds, no guarding, no rebound, no masses. No hepatomegaly or splenomegaly. MUSCULOSKELETAL: Normal range of motion at all joints. No bony deformities or tenderness. No CVA tenderness. UPPER EXTREMITIES: 2+ pulses, warm, well-perfused. No cyanosis. No clubbing. No peripheral edema. LOWER EXTREMITIES: 2+ pulses, warm, well-perfused. No calf tenderness. No peripheral edema. NEUROLOGICAL: Cranial nerves II-XII intact. Normal speech. Normal gait. PSYCHIATRIC: Cooperative. Good eye contact. Appropriate mood and affect. SKIN: Warm, dry, normal turgor, no rashes or lesions noted, normal capillary refill. Laboratory Results - last 24 hr 02/05/20 02/05/20 02/05/20 21:50 21:50 21:50 WBC 6.5 RBC 4.97 Hgb 15.1 Hct 45.2 D MCV 91.0 MCH 30.3 MCHC 33.3 RDW 14.9 Plt Count 425 D MPV 7.8 D Absolute Neuts (auto) 2.5 Neutrophils % 38.8 L D Lymphocytes % 43.1 H D Monocytes % 8.6 Eosinophils % 8.8 H D Basophils % 0.7 D Nucleated RBC % 0 PT with INR 11.00 INR 0.93 PTT (Actin FS) 34.0 Sodium Potassium Chloride Carbon Dioxide Anion Gap BUN Creatinine Est GFR (CKD-EPI)AfAm Est GFR (CKD-EPI)NonAf Random Glucose Calcium Phosphorus Magnesium Total Bilirubin AST ALT Alkaline Phosphatase Creatine Kinase Troponin I B-Natriuretic Peptide Total Protein Albumin Triglycerides Cholesterol Total LDL Cholesterol HDL Cholesterol TSH Beta HCG, Quant Blood Type O POSITIVE Antibody Screen Negative 02/05/20 02/06/20 02/06/20 21:50 04:20 04:20 WBC RBC Hgb Hct MCV MCH MCHC RDW Plt Count MPV Absolute Neuts (auto) Neutrophils % Lymphocytes % Monocytes % Eosinophils % Basophils % Nucleated RBC % PT with INR INR PTT (Actin FS) Sodium 143 139 Potassium 4.5 3.9 Chloride 106 106 Carbon Dioxide 29 28 Anion Gap 8 6 L BUN 11.0 11.9 Creatinine 0.8 0.7 Est GFR (CKD-EPI)AfAm 117.10 137.62 Est GFR (CKD-EPI)NonAf 101.04 118.74 Random Glucose 80 78 Calcium 9.8 9.2 Phosphorus 4.4 Magnesium 2.6 H 2.4 Total Bilirubin 0.8 1.1 H AST 20 18 ALT 25 21 Alkaline Phosphatase 136 H 110 Creatine Kinase 64 Troponin I < 0.02 < 0.02 < 0.02 B-Natriuretic Peptide 23.0 Total Protein 7.8 6.6 Albumin 3.9 3.4 Triglycerides 79 Cholesterol 223 H Total LDL Cholesterol 149 H HDL Cholesterol 64 H TSH 1.71 Beta HCG, Quant 1.5 Blood Type Antibody Screen ASSESSMENT/PLAN: Visit type - Emergency Visit Emergency Visit: Yes ED Registration Date: 02/05/20 Care time: The patient presented to the Emergency Department on the above date and was hospitalized for further evaluation of their emergent condition. - New Patient This patient is new to me today: Yes Date on this admission: 02/06/20 - Critical Care Critical Care patient: No 29 year old Female with a PMHx of asthma and covid presenting due to syncopal event and chest pain. # Syncope - likely related to vasovagal event in the setting of warm shower - Agree with 2D ECHO/CT head - cardiology consulted # Chest Pain - Possibly secondary to covid pneumonitis vs ACS - ACS lower on DDx due to young healthy female but cannot r/o due to covid results pending - follow-up cardiac enzymes
[2020-02-06 05:11] LABS: ALBUMIN 3.4 g/dl (3.4-5.0); ALK PHOS 110 U/L (45-117); ANION GAP 6 MMOL/L (8-16); BILIRUBIN,TOTAL 1.1 mg/dL (0.2-1); BLOOD UREA NITROGEN 11.9 mg/dL (7-18); CALCIUM 9.2 mg/dL (8.5-10.1); CHLORIDE 106 mmol/L (98-107); CHOLESTEROL 223 mg/dL (50-200); CO2 28 mmol/L (21-32); CREATININE 0.7 mg/dL (0.55-1.3); GLUCOSE,RANDOM 78 mg/dL (74-106); HDL CHOLESTEROL 64 mg/dL (40-60); LDL CHOLESTEROL (ONLY SJRH) 149 mg/dL (5-100); MAGNESIUM 2.4 mg/dL (1.8-2.4); PHOSPHOROUS 4.4 mg/dL (2.5-4.9); POTASSIUM 3.9 mmol/L (3.5-5.1); SGOT/AST 18 U/L (15-37); SGPT/ALT 21 U/L (13-61); SODIUM 139 mmol/L (136-145); TOT PROT 6.6 g/dl (6.4-8.2); TRIGLYCERIDES 79 mg/dL (0-150)
[2020-02-06 11:00] LABS: HEMATOCRIT 42.7 % (32.4-45.2); HEMOGLOBIN 14.4 GM/dL (10.7-15.3); MCH 30.4 pg (25.7-33.7); MCHC 33.6 g/dl (32.0-36.0); MEAN CELL VOLUME 90.4 fl (80-96); MEAN PLT VOLUME 7.5 fl (7.5-11.1); PLATELET COUNT 397 K/MM3 (134-434); RBC 4.73 M/mm3 (3.60-5.2); RDW 14.4 % (11.6-15.6); WHITE BLOOD COUNT 6.5 K/mm3 (4.0-10.0)
--- NOTE | 2020-02-06 12:59 | ECHO ---
Version: 1 Name: ASA RITCHIE Exam: Adult Echocardiogram Study Date: 02/06/2020, 10:01 AM Age: 29 Years MMode/2D Measurements & Calculations IVSd: 0.76 cm LVIDs: 3.0 cm LVIDd: 4.7 cm LVPWd: 0.96 cm LVOT diam: 2.15 cm Ao root diam: 2.5 cm LA dimension: 2.17 cm Doppler Measurements & Calculations MV E max josh: 68.6 cm/sec Med E/e': 8.7 MV A max josh: 42.4 cm/sec Med Peak E' Josh: 7.9 cm/sec MV E/A: 1.62 Lat E/e': 3.8 Lat Peak E' Josh: 18.2 cm/sec Ao max P.9 mmHg Ao V2 max: 120.8 cm/sec Procedure The study was technically difficult with many images being suboptimal in quality. Left Ventricle Although wall motion in all segments is not well seen, left ventricular systolic function appears gr ossly normal. Regional wall motion abnormalities cannot be excluded due to limited visualization. Right Ventricle The right ventricle is normal in size and function. Atria Normal left and right atrial size and function. Mitral Valve The mitral valve is normal in structure and function. There is no mitral valve stenosis. Tricuspid Valve The tricuspid valve is normal in structure and function. There is Trace to mild tricuspid regurgitat ion. Aortic Valve The aortic valve opens well. No hemodynamically significant valvular aortic stenosis. No aortic regu rgitation is present. Pulmonic Valve The pulmonic valve is not well seen, but is grossly normal. There is no pulmonic valvular stenosis. Mild pulmonic valvular regurgitation. Great Vessels The aortic root is normal size. Pericardium/Pleura There is no pericardial effusion. Summary Statements The study was technically difficult with many images being suboptimal in quality. Regional wall motion abnormalities cannot be excluded due to limited visualization. Although wall motion in all segments is not well seen, left ventricular systolic function appears gr ossly normal. There is Trace to mild tricuspid regurgitation. There is no pericardial effusion. MD Singh *Nirmal 02/06/2020, 12:58 PM Ordering Physician: Gomez Payne Referring Physician: GOMEZ PAYNE Performed By: Cecille Chu
--- NOTE | 2020-02-06 13:21 | PN ---
Teaching Attending Note Name of Resident: Alvin Arauz ATTENDING PHYSICIAN STATEMENT I saw and evaluated the patient. I reviewed the resident's note and discussed the case with the resident. I agree with the resident's findings and plan as documented. SUBJECTIVE: Seen and examined at bedside. Patient denies dizziness, shortness of breath, chest pain at this time. Head CT and CTA chest unremarkable. Echocardiogram poor quality study. Given need for transfusion during and subsequent dizziness with now normal hemoglobin considering Lloyd syndrome in differential. Will discuss with gynecology and neurology. OBJECTIVE: Last Vital Signs Temp Pulse Resp BP Pulse Ox 97.7 F 88 17 116/79 97 02/06/20 07:00 02/06/20 09:41 02/06/20 09:41 02/06/20 09:41 02/06/20 09:41 PE: per resident note Labs/Imaging: reviewed ASSESSMENT AND PLAN: 27-year-old female with a past medical history of asthma and COVID earlier this year, gave 3 weeks ago and required blood transfusions, presents with syncopal event and chest pain. #Syncope Reports pleuritic chest pain Orthostatics negative CTA chest negative Echo poor quality, unable to read Given no prior syncopal events and requirement of blood transfusion during minor concern for Lloyd syndrome. Will discuss with CURATORIAL SPECIALIST and neurology to confirm if further work-up required. Continue telemetry #Chest Pain Likely non cardiac - non reproducible - tele -trops neg x3 #Eosinophilia Not recorded on previous labs Has history of asthma f/u repeat differential
--- NOTE | 2020-02-06 13:25 | EKG ---
Test Reason : Blood Pressure : / mmHG Vent. Rate : 077 BPM Atrial Rate : 077 BPM P-R Int : 136 ms QRS Dur : 086 ms QT Int : 390 ms P-R-T Axes : 054 065 051 degrees QTc Int : 441 ms NORMAL SINUS RHYTHM NONSPECIFIC T WAVE ABNORMALITY WHEN COMPARED WITH ECG OF 05-FEB-2020 21:56, NO SIGNIFICANT CHANGE WAS FOUND Confirmed by RASHAUN JAY MD ([id number]) on 02/06/2020 1:25:37 PM Referred By: Confirmed By:RASHAUN JAY MD
--- NOTE | 2020-02-06 13:38 | EKG ---
Test Reason : Blood Pressure : / mmHG Vent. Rate : 072 BPM Atrial Rate : 072 BPM P-R Int : 142 ms QRS Dur : 086 ms QT Int : 396 ms P-R-T Axes : 069 067 045 degrees QTc Int : 433 ms NORMAL SINUS RHYTHM POSSIBLE LEFT ATRIAL ENLARGEMENT NONSPECIFIC T WAVE ABNORMALITY ABNORMAL ECG Confirmed by RASHAUN JAY MD ([id number]) on 02/06/2020 1:38:16 PM Referred By: Confirmed By:RASHAUN JAY MD
[2020-02-06 17:11] VITALS: BP 123/89; PULSE 70; TEMP 98.4; BMI 20.4
--- NOTE | 2020-02-06 18:34 | DS ---
Physical Exam: SUBJECTIVE: Patient seen and examined at bedside. The patient reports that since her giving she has been feeling lightheaded and been having right sided chest pain. She has also had headaches, tachcardia, and shortness of breath on exertion not relieved with her albuterol. Patient denies difficulty lactating, diarrhea, constipation, fever/chills, or dry skin. OBJECTIVE: Vital Signs Period Temp Pulse Resp BP Sys/Lucas Pulse Ox Last 24 Hr 97.7 F-98.7 F 70-89 16-20 111-145/76-97 96-100 PHYSICAL EXAM GENERAL: The patient is awake, alert, and fully oriented, in no acute distress. HEAD: Normal with no signs of trauma. EYES: Extraocular movements intact. ENT: Ears normal, nares patent, oropharynx clear without exudates, moist mucous membranes. NECK: Trachea midline, full range of motion, supple. LUNGS: Breath sounds equal, clear to auscultation bilaterally, no wheezes, no crackles, no accessory muscle use. HEART: Regular rate and rhythm, S1, S2 without murmur, rub or gallop. ABDOMEN: Soft, nontender, nondistended, normoactive bowel sounds, no guarding, no rebound, no masses. EXTREMITIES: 2+ pulses, warm, well-perfused, no edema. NEUROLOGICAL: Normal speech, gait not observed. PSYCH: Normal mood, normal affect. SKIN: Warm, dry, normal turgor, no rashes or lesions noted. LABS Laboratory Results - last 24 hr 02/05/20 02/05/20 02/05/20 21:50 21:50 21:50 WBC 6.5 RBC 4.97 Hgb 15.1 Hct 45.2 D MCV 91.0 MCH 30.3 MCHC 33.3 RDW 14.9 Plt Count 425 D MPV 7.8 D Absolute Neuts (auto) 2.5 Neutrophils % 38.8 L D Lymphocytes % 43.1 H D Monocytes % 8.6 Eosinophils % 8.8 H D Basophils % 0.7 D Nucleated RBC % 0 PT with INR 11.00 INR 0.93 PTT (Actin FS) 34.0 Sodium Potassium Chloride Carbon Dioxide Anion Gap BUN Creatinine Est GFR (CKD-EPI)AfAm Est GFR (CKD-EPI)NonAf Random Glucose Calcium Phosphorus Magnesium Total Bilirubin AST ALT Alkaline Phosphatase Creatine Kinase Troponin I B-Natriuretic Peptide Total Protein Albumin Triglycerides Cholesterol Total LDL Cholesterol HDL Cholesterol TSH Beta HCG, Quant SARS-CoV-2 Ab Interp Blood Type O POSITIVE Antibody Screen Negative 02/05/20 02/06/20 02/06/20 21:50 04:20 04:20 WBC RBC Hgb Hct MCV MCH MCHC RDW Plt Count MPV Absolute Neuts (auto) Neutrophils % Lymphocytes % Monocytes % Eosinophils % Basophils % Nucleated RBC % PT with INR INR PTT (Actin FS) Sodium 143 139 Potassium 4.5 3.9 Chloride 106 106 Carbon Dioxide 29 28 Anion Gap 8 6 L BUN 11.0 11.9 Creatinine 0.8 0.7 Est GFR (CKD-EPI)AfAm 117.10 137.62 Est GFR (CKD-EPI)NonAf 101.04 118.74 Random Glucose 80 78 Calcium 9.8 9.2 Phosphorus 4.4 Magnesium 2.6 H 2.4 Total Bilirubin 0.8 1.1 H AST 20 18 ALT 25 21 Alkaline Phosphatase 136 H 110 Creatine Kinase 64 Troponin I < 0.02 < 0.02 < 0.02 B-Natriuretic Peptide 23.0 Total Protein 7.8 6.6 Albumin 3.9 3.4 Triglycerides 79 Cholesterol 223 H Total LDL Cholesterol 149 H HDL Cholesterol 64 H TSH 1.71 Beta HCG, Quant 1.5 SARS-CoV-2 Ab Interp Blood Type Antibody Screen 02/06/20 02/06/20 04:20 10:44 WBC 6.5 RBC 4.73 Hgb 14.4 Hct 42.7 MCV 90.4 MCH 30.4 MCHC 33.6 RDW 14.4 Plt Count 397 MPV 7.5 Absolute Neuts (auto) Neutrophils % Lymphocytes % Monocytes % Eosinophils % Basophils % Nucleated RBC % PT with INR INR PTT (Actin FS) Sodium Potassium Chloride Carbon Dioxide Anion Gap BUN Creatinine Est GFR (CKD-EPI)AfAm Est GFR (CKD-EPI)NonAf Random Glucose Calcium Phosphorus Magnesium Total Bilirubin AST ALT Alkaline Phosphatase Creatine Kinase Troponin I B-Natriuretic Peptide Total Protein Albumin Triglycerides Cholesterol Total LDL Cholesterol HDL Cholesterol TSH Beta HCG, Quant SARS-CoV-2 Ab Interp Non-reactive Blood Type Antibody Screen HOSPITAL COURSE: Date of Admission:02/05/20 29 year old female with past medical history that includes asthma, COVID several months ago, and normal spontaneous vaginal delivery 3 weeks ago requiring 2 units pRBC, who presented with complaint that since her giving she has been feeling lightheaded and been having right sided chest pain; as well as intermittent headaches, tachcardia, and shortness of breath on exertion not relieved with her albuterol. Orthostatics done at bedside were negative. TSH was normal and CT head negative, making Lloyd syndrome unlikely. The patient denied any nighttime awakenings due to asthma in the past month. Both ECG done on admission and the next day showed normal sinus rhythm with nonspecific T wave abnormalities. Troponins negative x 3. ECHO showed trace to mild tricuspid regurgitation. Patient was discharged for outpatient follow up. Date of Discharge: 02/06/20 Minutes to complete discharge: 42 Discharge Summary Problems reviewed: Yes Reason For Visit: SYNCOPE, ABNORMAL ELECTROCARIOGRAPHY Condition: Good - Instructions Diet, Activity, Other Instructions: You were admitted to the hospital for dizziness, weakness and loss of consciousness While in the hospital, we evaluated you with lab work, blood work, imaging including CAT of your Head and chest. We found that your symptoms may have been as a results of decreased fluid intake and exhaustion. Your blood test shows that you have high cholesterol. We recommend you modify your diet to avoid foods high in fat. Ensure you maintain an adequate diet and exercise. Please ensure you maintain adequate hydration. Please take all your medications as prescribed Please follow up with your primary care physician within 1 week or the one we have provided you with. Please follow up with your QUALITY AND [employer]IABILITY ENGINEER physician Dr. Watts, within 1 week for repeat blood work and follow up. If you have any new, worsening, or concerning symptoms, including worsening dizziness, chest pain, abdominal pain, worsening bleeding, please return to the ER or call 911. Referrals: Marshall Oliveira MD [Staff Physician] - 1 Week Lucius Watts MD [Staff Physician] - Haider Hawk MD [Staff Physician] - 1 Week (evaluate for dizziness r/o Vertigo) Disposition: HOME - Home Medications Comprehensive Discharge Medication List: Ambulatory Orders Albuterol Sulfate Inhaler - [Ventolin HFA Inhaler -] 1 - 2 inh PO Q4H #1 inhaler 11/02/19 Tablet 1 tablet PO DAILY 01/15/20 This patient is new to me today: Yes Date on this admission: 02/08/20 Emergency Visit: Yes ED Registration Date: 02/05/20 Care time: The patient presented to the Emergency Department on the above date and was hospitalized for further evaluation of their emergent condition. Critical Care patient: No - Discharge Referral Referred to [facility] Med P.C.: No ATTENDING PHYSICIAN STATEMENT I saw and evaluated the patient. I reviewed the resident's note and discussed the case with the resident. I agree with the resident's findings and plan as documented. SUBJECTIVE: OBJECTIVE: ASSESSMENT AND PLAN:
--- NOTE | 2020-02-09 13:34 | EKG ---
Test Reason : Blood Pressure : / mmHG Vent. Rate : 080 BPM Atrial Rate : 080 BPM P-R Int : 138 ms QRS Dur : 084 ms QT Int : 382 ms P-R-T Axes : 074 067 047 degrees QTc Int : 440 ms NORMAL SINUS RHYTHM POSSIBLE LEFT ATRIAL ENLARGEMENT BORDERLINE ECG WHEN COMPARED WITH ECG OF 17-JAN-2020 09:58, NO SIGNIFICANT CHANGE WAS FOUND Confirmed by Shanti Boone ([id number]) on 02/09/2020 1:34:05 PM Referred By: Confirmed By:Shanti Boone
== END 2020-02-06 19:57 | disposition home or self-care (01) | DRG 776 ==
LOC: JER 21:06 → JERBED 23:46 → J4S 02-06 15:13
PROVIDERS: ADMIT Internal Medicine; ATTEND Internal Medicine
DX: O90.9 Complication of the puerperium, unspecified (principal); E23.0 Hypopituitarism; R55 Syncope and collapse; R07.89 Other chest pain; D72.1 Eosinophilia
CPT/HCPCS: 36415; 70450-TC; 71275-TC; 80053; 80061; 82550; 83721; 83735; 83880; 84100; 84443; 84484; 84702; 85025; 85027; 85610; 85730; 86769; 86850; 86900; 86901; 93005; 93010; 93306-TC; 99285-25; U0003

== ENCOUNTER 2020-04-24 21:03 | Emergency (ER) | payer BC ==
[2020-04-24 21:07] VITALS: TEMP 98.1; BMI 21.7
--- OUTSIDE RECORDS SUMMARY | 2020-04-24 21:12 | XMS ---
:1990 Author Organization [facility] Care Team Providers Name Role Phone Bryan Haines Unavailable Unavailable Other, Doctor Unavailable Unavailable Re-disclosure Warning The records that you are about to access may contain information from federally- assisted alcohol or drug abuse programs. If such information is present, then the following federally mandated warning applies: This information has been disclosed to you from records protected by federal confidentiality rules (42 CFR part 2). The federal rules prohibit you from making any further disclosure of this information unless further disclosure is expressly permitted by the written consent of the person to whom it pertains or as otherwise permitted by 42 CFR part 2. A general authorization for the release of medical or other information is NOT sufficient for this purpose. The Federal rules restrict any use of the information to criminally investigate or prosecute any alcohol or drug abuse patient.The records that you are about to access may contain highly sensitive health information, the redisclosure of which is protected by Article 27-F of the [place] State Public Health law. If you continue you may haveaccess to information: Regarding HIV / AIDS; Provided by facilities licensed or operated by the [facility] Office of Mental Health; or Provided by the [facility] Office for People With Developmental Disabilities. If such information is present, then the following [facility] mandated warning applies: This information has been disclosed to you from confidential records which are protected by state law. State law prohibits you from making any further disclosure of this information without the specific written consent of the person to whom it pertains, or as otherwise permitted by law. Any unauthorized further disclosure in violation of state law may result in a fine or senior care sentence or both. A general authorization for the release of medical or other information is NOT sufficient authorization for further disclosure. Encounters Encounter Providers Location Date Indications Data Source(s ) Emergency Attender: Bryan [id number] 10/09/2019 WOKE UP SOB 6 MOS [facility] DysonAttender: 06[facility]04[facility] - 10/09/2019 09:30:00 AM EDT WOKE UP SOB 6 MOS [facility] Patient discharged. Medications Medication Brand Start Product Dose Route Administrative Pharmacy [facility] Indications Reaction Description Data Name Date Form Instructions Instructions Source(s) Albuterol albuterol 0 [id number] active albute rol Ordered: 09-Oct-2019 [facility] albuterol Quantity: 0 [employer] Refills: 0 System Insurance Providers Payer name Policy type / Policy ID Covered Covered alliance party's Policy Plan Coverage type alliance party ID relationship to Augustin Information augustin BC PPO [id number] Blue Cross Blue Cross [id number] PPO [id number] Problems, Conditions, and Diagnoses Code Display Name Description Problem Type Effective Data Sour ce(s) Dates O99.519 Asthma during Asthma during 80145-4 10/09/2019 [facility] EDT WOKE UP SOB 6 MOS WOKE UP SOB 6 MOS Diagnosis 10/09/2019 [facility] O26.891 Other specified Other specified Diagnosis 10/09/2019 [facility] related related 06:04:00 AM [facility] conditions, first conditions in EDT trimester first trimester J45.998 Other asthma Other asthma Diagnosis 10/09/2019 [facility] M[facility] t 06[facility]04:00 [facility]T Z3A.01 Less than 8 weeks Less than 8 weeks Diagnosis 10/09/2019 [facility] gestation of gestation of 06:04:00 AM [facility] EDT O99.519 Diseases of the Asthma during Diagnosis 10/09/2019 [facility] respiratory system 06:04:00 AM [facility] complicating EDT , unspecified trimester WOKE UP SOB WOKE UP SOB Diagnosis 10/09/2019 [facility] 06:04:00 [facility] Surgeries/Procedures Procedure Description Date Indications Data Source(s) Electrocardiographic 10/09/2019 [facility] procedure (procedure) 07:01:00 AM System EDT - 10/09/2019 07:11:00 AM EDT Results ID Date Data Source [id number] 02/06/2020 02:40:00 AM EDT [facility] Name Value Range Interpretation Description Data Sup porting Code Source(s) Document(s ) SARS [facility] coronavirus 2 RNA This lab was ordered by [facility] and reported by [facility]. ID Date Data Source [id number] 01/15/2020 10:00:00 AM EDT [facility] Name Value Range Interpretation Description Data Sup porting Code Source(s) Document(s ) SARS [facility] CORONAVIRUS 2 RNA This lab was ordered by [facility] and reported by [facility]. ID Date Data Source [id number] 11/05/2019 12:00:00 AM EDT [facility] Name Value Range Interpretation Code Description Data Lizzie rce(s) Supporting Document(s ) 2019-nCoV [facility] N XXX Ql KEO N2 This lab was ordered by [facility] and reported by [facility]. ID Date Data Source [id number] 10/22/2019 06:34:00 PM EDT [facility] Name Value Range Interpretation Code Description Data Lizzie rce(s) Supporting Document(s ) RESULT [facility] This lab was ordered by KASANDRA kovacs nd reported by [facility] Rito. ID Date Data Source [id number] 10/09/2019 11:03:45 AM [facility] System Name Value Range Interpretation Description Data Sup porting Code Source(s) Document(s ) Leukocytes 9.9 Normal (applies WBC Count [facility] [#/volume] in {10^3_uL to non-numeric Health Unspecified } results) System specimen by Automated count Erythrocytes 3.87 Normal (applies RBC Count [facility] [#/volume] in {10^6_uL to non-numeric Health Blood by } results) System Automated count Erythrocyte mean 95.1 fl Normal (applies MCV [facility] corpuscular to non-numeric Health volume [Entitic results) System volume] by Automated count Hematocrit 36.8 % Normal (applies Hematocrit [facility] [Volume to non-numeric Health Fraction] of results) System Blood Hemoglobin 12.2 Normal (applies Hemoglobin [facility] [Mass/volume] in {gm/dL} to non-numeric Health Blood results) System Erythrocyte mean 31.5 pg Normal (applies MCH [facility] corpuscular to non-numeric Health hemoglobin results) System [Entitic mass] by Automated count Erythrocyte mean 33.2 Normal (applies MCHC [facility] corpuscular {gm/dL} to non-numeric Health hemoglobin results) System concentration [Mass/volume] by Automated count Erythrocyte 12.3 % Normal (applies RDW-CV [facility] distribution to non-numeric Health width [Entitic results) System volume] by Automated count Platelets 292 Normal (applies Platelet Count [facility] [#/volume] in {10^3_uL to non-numeric Health Plasma by } results) System Automated count Eosinophils 0.12 Normal (applies Eosinophil # [facility] [#/volume] in {10^3_uL to non-numeric Health Blood } results) System Platelet mean 10.1 fl Normal (applies MPV [facility] volume [Entitic to non-numeric Health volume] in Blood results) System by Automated count Monocytes 1.1 Above high Monocyte # [facility] [#/volume] in {10^3_uL normal Health Blood by Manual } System count Neutrophils 6.2 Normal (applies Neutrophil # [facility] [#/volume] in {10^3_uL to non-numeric Health Body fluid } results) System Neutrophils/100 63.1 % Normal (applies Neutrophil % Jamaal mejia leukocytes in to non-numeric Health Blood by results) System Automated count Basophils 0.03 Normal (applies Basophil # [facility] [#/volume] in {10^3_uL to non-numeric Health Blood by } results) System Automated count Lymphocyte 2.3 Normal (applies Lymphocyte # [facility] percent {10^3_uL to non-numeric Health differential } results) System count (procedure) Monocytes/100 11.5 % Normal (applies Monocyte % [facility] leukocytes in to non-numeric Health Blood results) System Basophils/100 0.3 % Normal (applies Basophil % [facility] leukocytes in to non-numeric Health Unspecified results) System specimen by Manual count ImmatureGranuloc 0.7 % Normal (applies Immature [facility] ytes% to non-numeric Granulocytes % Health results) System Eosinophils/100 1.2 % Normal (applies Eosinophil % Jamaal mejia leukocytes in to non-numeric Health Unspecified results) System specimen Lymphocytes 23.2 % Normal (applies Lymphocyte % [facility] [#/volume] in to non-numeric Health Blood by results) System Automated count Nucleated 0.0 Normal (applies NRBC % [facility] erythrocytes {/100_WB to non-numeric Health [#/volume] in C} results) System Body fluid NRBC# 0.00 Below low normal NRBC # [facility] {10^3_uL Health } System ImmatureGranuloc 0.07 Normal (applies Immature [facility] ytes# {10^3_uL to non-numeric Granulocytes # Health } results) System ID Date Data Source [id number] 10/09/2019 11:03:45 AM EDT [facility] System Name Value Range Interpretation Description Data Sup porting Code Source(s) Document(s ) Chloride 108 Above high Chloride, [facility] [Moles/volume] in mmol/L normal Serum Health Serum or Plasma System Potassium 4.1 Normal (applies Potassium, [facility] [Mass/volume] in mmol/L to non-numeric Serum Health Serum or Plasma results) System Sodium 143 Normal (applies Sodium, Serum [facility] [Moles/volume] in mmol/L to non-numeric Health Serum or Plasma results) System Urea nitrogen 4 mg/dl Below low normal Blood Urea [facility] [Mass/volume] in Nitrogen, Health Serum or Plasma Serum System Carbon dioxide, 22.0 Normal (applies CO2, Serum [facility] total mmol/L to non-numeric Health [Moles/volume] in results) System Serum or Plasma TotalProtein 6.5 Normal (applies Total Protein [facility] mg/dl to non-numeric Health results) System Glucose 96 Normal (applies Glucose, [facility] [Mass/volume] in mg/dL to non-numeric Serum Health Serum or Plasma results) System Creatinine 0.60 Below low normal Creatinine, [facility] [Mass/volume] in mg/dl Serum Health Serum or Plasma System Alkaline 84 Normal (applies Alkaline [facility] phosphatase {IU/L} to non-numeric Phosphatase, Health isoenzymes results) Serum System [Enzymatic activity/volume] in Serum or Plasma by Heat stability Bilirubin.total 0.4 Normal (applies Bilirubin, [facility] [Mass/volume] in mg/dl to non-numeric Serum Total Health Serum or Plasma results) System DirectBilirubin 0.2 Normal (applies Direct [facility] mg/dl to non-numeric Bilirubin Health results) System Aspartate 26 Normal (applies Aspartate [facility] aminotransferase {IU/L} to non-numeric Transaminase, Heal th [Enzymatic results) Serum System activity/volume] in Serum or Plasma by With P-5'-P Albumin 3.7 Below low normal Albumin, [facility] [Mass/volume] in {gm/dl} Serum Health Serum or Plasma System I.Phosphorus 4.2 Normal (applies I. Phosphorus [facility] mg/dl to non-numeric Health results) System Urate 3.5 Normal (applies Uric Acid, [facility] [Mass/volume] in mg/dl to non-numeric Serum Health Serum or Plasma results) System Alanine 32 Normal (applies Alanine [facility] aminotransferase {IU/L} to non-numeric Aminotransfer [facility] [Enzymatic results) ase, Serum System activity/volume] in Serum or Plasma Calcium 8.9 Normal (applies Calcium, [facility] [Mass/volume] in mg/dl to non-numeric Total Serum Health Serum or Plasma results) System A/GRatio 1.32 Normal (applies A/G Ratio [facility] to non-numeric Health results) System Glomerular > 90 Normal (applies GFR [facility] filtration to non-numeric Health rate/1.73 sq results) System M.predicted [Volume Rate/Area] in Serum or Plasma by Creatinine-based formula (CKD-EPI) eGFR will provide clinicians with a more accurate indicator of renal function then the serum creatinine. The eGFR is automa tically calculated from an empiric formula (endorsed by the National Kid[employer] ion) which incorporates age, sex, and race.Clinicians may notice surprisingly low GFR's with serum creatinine valueswithin normal range- particularly in elderly wo men (with low muscle mass).In the hospital setting, the eGFR should add an element of safety in drug dosing, in assessing the risk of IV contrast administration, and in assessing vascular risk.The NKF staging system is as follows:Normal: eGFR >90 with no kidney markersStage 1: eGFR >90 with kidney markers*Stage 2: eGFR 60- 89Stage 3: eGFR 30-59Stage 4: eGFR 15-29Stage 5: eGFR <15 (usually requir ing dialysis)*Markers include: Proteinuria, Hematuria, abnormal imaging-studies, or other blood or urine test abnormalities Anion gap in Serum 13.00 mmol/L Above high normal Anion Gap [facility] Health or Plasma System Procedure Vital Signs ID Date Data Source UNK Name Value Range Interpretation Code Description Data Source(s) Body temperature 98.1 [degF] 0 - 200 Normal (applies to 98.1 [degF ] [facility] non-numeric results) [facility] Body temperature 36.7 Barbara 0 - 99.9 Normal (applies to 36.7 Barbara [facility] non-numeric results) [facility] Diastolic blood 70 mm[Hg] 0 - 999 Normal (applies to 70 mm[Hg] M [facility] pressure non-numeric results) [facility] Systolic blood 119 mm[Hg] 0 - 999 Normal (applies to 119 mm[Hg] [facility] pressure non-numeric results) [facility] Oxygen saturation 98 % 0 - 999 Normal (applies to 98 % [facility] in Arterial blood non-numeric results) [facility] by Pulse oximetry Respiratory rate 17 0 - 999 Normal (applies to 17 [facility] non-numeric results) [facility] Heart rate 111 0 - 999 Above high normal 111 [facility] Body surface area 1.7 m2 1.7 m2 [facility] ore Derived from Health Syste m formula Body mass index 22.2 kg/m2 22.2 kg/m2 [facility] ([facility]) [Ratio] [facility] Syst em Body weight 64.41 kg 64.41 kg [facility] Body height 170.18 cm 170.18 cm [facility] Patient Treatment Plan of Care Planned Activity Planned Date Details Description Data Source (s) Albuterol [facility]
--- NOTE | 2020-04-24 22:10 | PDOC ---
Attending Attestation - Resident Resident Name: Prem Bernal - ED Attending Attestation I have performed the following: I have examined & evaluated the patient, The case was reviewed & discussed with the resident, I agree w/resident's findings & plan - HPI HPI: 04/24/20 22:47 Pt gave to her first baby 3 months ago (Child is healthy). States that 3 weeks after the delivery she came here with CLEMENS and was sent for CT; workup was normal and she was sent home. Pt has CLEMENS; sharp pains to the back of head and top of head. She takes tylenol with slighty relief; but she has been taking tylenol constantly q 4-6 hrs. Pt has been eating and sleeping normally She has not eaten much today. Pt's Moms side of family has CAD; no fam hx on Dad's side. Pt has no PMHx other than asthma - Physicial Exam PE: 04/24/20 22:51 Normal exam Normal HEENT normal neuro exam pt has normal heart and lungs abd soft NT ND Pt is tearful and afraid - states that she has anxiety. - Medical Decision Making 04/24/20 22:43 BP 140/90s HR 90s; pt given labetalol and reglan. Pt getting some hydration as she has had little to nothing to eat today. 04/25/20 01:02 Patient Name: ASA RITCHIE THIS IS A PRELIMINARY REPORT DATE OF SERVICE: 2020-04-24 23:56:08 IMAGES: [id number] EXAM: CT head without contrast and BRAIN CTA HISTORY: Headache COMPARISON: None. FINDINGS: CT head:The ventricular system is midline and nondilated. The sulcal pattern is normal for the patient's age. There is no bleed, mass, extra-axial fluid collection or mass effect. No skull fracture or skull lesion is identified. The visualized paranasal sinuses and mastoid air cells are clear. CTA brain: The right and left anterior, middle and posterior cerebral arteries are normal without clot, occlusion, high-grade stenosis or discrete aneurysm formation. The distal vertebrobasilar system is normal. The distal right and left internal carotid arteries are patent. There are no areas of abnormally increased or decreased enhancement. IMPRESSION: Normal CT head. Normal CTA brain. Discharge - Discharge Information Problems reviewed: Yes Clinical Impression/Diagnosis: Fall, Headache Disposition: HOME - Follow up/Referral - Patient Discharge Instructions - Post Discharge Activity
[2020-04-24] MEDS ORDERED: SODIUM CHLORIDE 1,000 ML IV STA (22:13)
[2020-04-24] MEDS ORDERED: ACETAMINOPHEN 1000 MG/100 ML VIAL (NON FORMULARY) IVPB ONE (22:13)
[2020-04-24] MEDS ORDERED: LABETALOL HCL 5 MG/1 ML (100MG/20 ML VIAL) IVPUSH ONE (22:26)
[2020-04-24] MEDS ORDERED: METOCLOPRAMIDE HCL INJECTION 10 MG/2 ML VIAL IVPUSH ONE (22:29)
[2020-04-24] MEDS ORDERED: METOCLOPRAMIDE HCL INJECTION 10 MG/2 ML VIAL ONE (22:31)
[2020-04-24 22:41] LABS: BASO % 0.8 % (0-2.0); EOS % 4.1 % (0-4.5); HEMATOCRIT 44.8 % (32.4-45.2); HEMOGLOBIN 14.9 GM/dL (10.7-15.3); LYMPH % 44.2 % (8-40); MCH 30.9 pg (25.7-33.7); MCHC 33.3 g/dl (32.0-36.0); MEAN CELL VOLUME 92.8 fl (80-96); MEAN PLT VOLUME 7.3 fl (7.5-11.1); MONO % 9.5 % (3.8-10.2); NEUT % 41.4 % (42.8-82.8); PLATELET COUNT 337 K/MM3 (134-434); RBC 4.83 M/mm3 (3.60-5.2); RDW 13.1 % (11.6-15.6); WHITE BLOOD COUNT 6.1 K/mm3 (4.0-10.0)
[2020-04-24 23:01] VITALS: BP 119/84; PULSE 81
--- NOTE | 2020-04-24 23:04 | PDOC ---
History of Present Illness - General Chief Complaint: Headache Stated Complaint: HEADACHE Time Seen by Provider: 04/24/20 22:09 - History of Present Illness Initial Comments: 04/24/20 23:03 29yo F with PMH of Covid-19 in September 2019 (not hospitalized), mild intermittent asthma, who is 15 weeks post- with her first child presents with one week of headache and 15 weeks of lightheadedness. Patient states that after her deli very, which was complicated by hemorrhage with transfusion of 2 units of blood, she had the feeling of wanting to pass out. 3 weeks after delivery, she had a workup that included a head and chest CT and ECHO, which she reports as negative. The lightheadedness persisted, and she began having severe headaches lasting just a few minutes in the back of her head going to the top. Denies fever, phono/photophobia, neck pain. Has been taking 1000mg tylenol q4 hours 2-3 times per day for one week with no relief. PMH: as above PSH: none Meds: albuterol Allergies: none ETOH: occational 1-2 drinks drugs: denies tobacco: denies ROS GENERAL/CONSTITUTIONAL: No fever or chills. No weakness. lightheadedness HEAD, EYES, EARS, NOSE AND THROAT: No change in vision. No ear pain or di scharge. No sore throat. CARDIOVASCULAR: No chest pain or shortness of breath. RESPIRATORY: No cough, wheezing, or hemoptysis. GASTROINTESTINAL: No nausea, vomiting, diarrhea or constipation. GENITOURINARY: No dysuria, frequency, or change in urination. MUSCULOSKELETAL: No joint or muscle swelling or pain. No neck or back pain. SKIN: No rash NEUROLOGIC: headache, no vertigo ENDOCRINE: No increased thirst. No abnormal weight change HEMATOLOGIC/LYMPHATIC: No anemia, easy bleeding, or history of blood clots. ALLERGIC/IMMUNOLOGIC: No hives or skin allergy. PE GENERAL: Awake, alert, and fully oriented, in no acute distress HEAD: No signs of trauma, normocephalic, atraumatic EYES: PERRLA, EOMI, sclera anicteric, conjunctiva clear ENT: Auricles normal inspection, hearing grossly normal, nares patent, oropharynx clear without exudates. Moist mucosa NECK: Normal ROM, supple, no lymphadenopathy, JVD, or masses LUNGS: No distress, speaks full sentences, clear to auscultation bilaterally HEART: Regular rate and rhythm, normal S1 and S2, no murmurs, rubs or gallops, peripheral pulses normal and equal bilaterally. ABDOMEN: Soft, nontender, normoactive bowel sounds. No guarding, no rebound. No masses EXTREMITIES : Normal inspection, Normal range of motion, no edema. No clubbing or cyanosis. NEUROLOGICAL: Cranial nerves II through XII grossly intact. Normal speech, normal gait, no focal sensorimotor deficits SKIN: Warm, Dry, normal turgor, no rashes or lesions noted Vital Signs Temp Pulse Resp BP Pulse Ox 98.1 F 81 20 119/84 99 04/24/20 21:04 04/24/20 23:01 04/24/20 23:01 04/24/20 23:01 04/24/20 23:01 MDM: 29yo F with PMH of Covid-19 in September 2019 (not hospitalized), mild intermittent asthma, who is 15 weeks post- with her first child presents with one week of headache and 15 weeks of lightheadedness. Was intially hypertensive to 140. DDx includes ICH, brain aneurism, tension headaches. -EKG -CT head w/o contrast and CTA head -CBC, CMP, trop, hcg, BNP, tylenol level UA -10mg labetalol, 1000mg tylenol, 1000ml NS, reglan 04/25/20 02:47 EKG: NSR, rate 74, normal axis and intervals, TWI in V2-V3 (old EKG had TWI in V2, but this change is likely positional and normal) Labs: unremarkable CT head and CTA head: normal Patient reports improvement in symptoms after meds and fluids DC home with neuro referral Past History - Medical History Allergies/Adverse Reactions: Allergies Allergy/AdvReac Type Severity Reaction Status Date / Time No Known Allergies Allergy Verified 04/24/20 21:06 Home Medications: Ambulatory Orders Albuterol Sulfate Inhaler - [Ventolin HFA Inhaler -] 1 - 2 inh PO Q4H #1 inhaler 11/02/19 Tablet 1 tablet PO DAILY 01/15/20 Anemia: No (except during child ) Asthma: Yes Cancer: No Cardiac Disorders: No CVA: No COPD: No CHF: No Dementia: No Diabetes: No GI Disorders: No Disorders: No HTN: No Hypercholesterolemia: No Liver Disease: No Seizures: No Thyroid Disease: No - Surgical History Abdominal Surgery: No Appendectomy: No Cardiac Surgery: No Cholecystectomy: No Lung Surgery: No Neurologic Surgery: No Orthopedic Surgery: No - Reproductive History Is Patient Now?: No - Psycho-Social/Smoking History Smoking History: Never smoked Have you smoked in the past 12 months: No Number of Cigarettes Smoked Daily: 1 If you are a former smoker, when did you quit?: 1 yr ago - Substance Abuse Hx (Audit-C & DAST Scrn) How often the patient has a drink containing alcohol: Never Score: In Men: 4 or > Positive; In Women: 3 or > Positive: 0 Screen Result (Pos requires Nsg. Audit-10AR): Negative In the last yr the pt used illegal drug/Rx for NonMed reason: No Score: Yes response is considered Positive: 0 Screen Result (Positive result requires Nsg. DAST-10): Negative *Physical Exam - Vital Signs Last Vital Signs Temp Pulse Resp BP Pulse Ox 98.1 F 81 20 119/84 99 04/24/20 21:04 04/24/20 23:01 04/24/20 23:01 04/24/20 23:01 04/24/20 23:01 ED Treatment Course - LABORATORY CBC & Chemistry Diagram: 04/24/20 22:30 04/24/20 22:30 - ADDITIONAL ORDERS Additional order review: 04/24/20 22:30 RBC 4.83 MCV 92.8 MCHC 33.3 RDW 13.1 MPV 7.3 L Neutrophils % 41.4 L Lymphocytes % 44.2 H Monocytes % 9.5 Eosinophils % 4.1 Basophils % 0.8 - Medications Given in the ED: ED Medications Discontinued Medications Generic Name Dose Route Start Last Admin Trade Name Freq PRN Reason Stop Dose Admin Sodium Chloride 1,000 mls @ 1,000 mls/hr 04/24/20 22:13 04/24/20 22:28 Normal Saline - IV 04/24/20 23:12 1,000 mls/hr ASDIR STA Administration Labetalol HCl 10 mg 04/24/20 22:26 04/24/20 22:34 Normodyne Injection - IVPUSH 04/24/20 22:27 10 mg ONCE ONE Administration Metoclopramide HCl 10 mg 04/24/20 22:29 04/24/20 22:34 Reglan Injection - IVPUSH 04/24/20 22:30 10 mg ONCE ONE Administration Discharge - Discharge Information Problems reviewed: Yes Clinical Impression/Diagnosis: Lightheadedness Headache Qualifiers: Headache type: unspecified Headache chronicity pattern: episodic headache Intractability: not intractable Qualified Code(s): R51 - Headache Condition: Improved Disposition: HOME - Admission No - Follow up/Referral - Patient Discharge Instructions Additional Instructions: You were seen in the ER for headache and lightheadedness. We did a physical exam, labs, and CT scans of your head and the vessels in your brain, which did not show any acute abnormalities. We do not have a good explanation for your symptoms. Please follow up with your primary doctor within one week. We also gave you a referral to a neurologist. You can continue to take tylenol, but please wait 8 hours between doses and do not exceed 3000mg (six 500mg pills) in one day. Please return to the ER for new, continued, or worsening symptoms, ch est pain, fever, or any other reason. - Post Discharge Activity
[2020-04-24 23:41] LABS: ALBUMIN 4.5 g/dl (3.4-5.0); ALK PHOS 77 U/L (45-117); ANION GAP 4 MMOL/L (8-16); BILIRUBIN,TOTAL 0.8 mg/dL (0.2-1); BLOOD UREA NITROGEN 7.3 mg/dL (7-18); CALCIUM 9.8 mg/dL (8.5-10.1); CHLORIDE 106 mmol/L (98-107); CO2 30 mmol/L (21-32); CREATININE 0.6 mg/dL (0.55-1.3); GLUCOSE,RANDOM 83 mg/dL (74-106); POTASSIUM 4.3 mmol/L (3.5-5.1); SGOT/AST 16 U/L (15-37); SGPT/ALT 18 U/L (13-61); SODIUM 140 mmol/L (136-145); TOT PROT 8.3 g/dl (6.4-8.2)
[2020-04-24 23:46] LABS: HCG,QUALITATIVE URINE Negative
[2020-04-25 00:46] LABS: EPI CELLS 15 /uL (0-25.1); HYALINE CASTS 0 /uL (0-3.1); PH,URINE 6.5 (5.0-8.0); URINE APPEARANCE CLEAR; URINE BACTERIA 548 /uL (0-1359); URINE BILIRUBIN NEGATIVE (NEGATIVE); URINE COLOR YELLOW; URINE GLUCOSE (UA) NEGATIVE (NEGATIVE); URINE KETONE TRACE (NEGATIVE); URINE LEUK ESTERASE TRACE (NEGATIVE); URINE NITRITE NEGATIVE (NEGATIVE); URINE PROTEIN NEGATIVE (NEGATIVE); URINE RBC 3 /uL (0-23.9); URINE UROBILINOGEN 0.2 mg/dL (0.2-1.0); URINE WBC 13 /uL (0-25.8)
--- NOTE | 2020-04-25 15:08 | EKG ---
Test Reason : Blood Pressure : / mmHG Vent. Rate : 074 BPM Atrial Rate : 074 BPM P-R Int : 146 ms QRS Dur : 090 ms QT Int : 400 ms P-R-T Axes : 075 076 056 degrees QTc Int : 444 ms NORMAL SINUS RHYTHM POSSIBLE LEFT ATRIAL ENLARGEMENT T WAVE ABNORMALITY, CONSIDER ANTERIOR ISCHEMIA ABNORMAL ECG WHEN COMPARED WITH ECG OF 06-FEB-2020 10:28, NO SIGNIFICANT CHANGE WAS FOUND Confirmed by MD Palomo, Tho ([id number]) on 04/25/2020 3:07:46 PM Referred By: Confirmed By:Tho Culver MD
== END 2020-04-25 01:21 | disposition home or self-care (01) ==
LOC: JER 21:03
PROC: 3E0333Z Introduction of Anti-inflammatory into Peripheral Vein, Percutaneous Approach (ICD-10-PCS; principal; 2020-04-24)
PROC: 3E033GC Introduction of Other Therapeutic Substance into Peripheral Vein, Percutaneous Approach (ICD-10-PCS; 2020-04-24)
PROC: 3E0337Z Introduction of Electrolytic and Water Balance Substance into Peripheral Vein, Percutaneous Approach (ICD-10-PCS; 2020-04-24)
DX: R51 Headache (principal); R42 Dizziness and giddiness
CPT/HCPCS: 36415; 70450-TC; 70496-TC; 80053; 80307; 81003; 83880; 84484; 84702; 84703; 85025; 93005; 93010; 99285-25